=== PATIENT | male | born 1950 | race Caucasian/White ===

== ENCOUNTER → 2024-02-08 09:52 | Outpatient (REF) | payer MEDICARE, OTHER, SELFPAY | LOC: HWRAD 09:52 | PROVIDERS: ATTENDING PHYSICIAN Nurse Practitioner Family | DX: I77.9 Disorder of arteries and arterioles, unspecified (principal); I25.10 Atherosclerotic heart disease of native coronary artery without angina pectoris | CPT/HCPCS: 93880 ==

== ENCOUNTER → 2024-02-11 08:29 | Outpatient (REF) | payer MEDICARE, OTHER, SELFPAY | LOC: HWRAD 08:29 | PROVIDERS: ATTENDING PHYSICIAN Nurse Practitioner Family | DX: Z13.6 Encounter for screening for cardiovascular disorders (principal) | CPT/HCPCS: 76770 ==

== ENCOUNTER 2024-03-13 11:11 | Emergency (ER) | payer MEDICARE, OTHER, SELFPAY ==
[2024-03-13 11:19] VITALS: BP 168/88
[2024-03-13 11:46] LABS: Hematocrit 40.5 % (39.0-52.0); Hemoglobin 14.1 g/dL (13.0-18.0); Mean Corp Hgb Conc. 34.8 g/dL (33.0-37.0); Mean Corpuscular Volume 86.2 fL (80.0-94.0); Mean Platelet Volume 11.3 fL (7.4-10.4); Platelet Count 197 10^3/uL (130-400); White Blood Cell Count 6.4 10^3/uL (4.8-10.8)
[2024-03-13 12:06] LABS: ALT (SGPT) 22 U/L (0-50); AST (SGOT) 31 U/L (17-59); Alkaline Phosphatase 73 U/L (38-126); Blood Urea Nitrogen 19 mg/dl (9-20); Calcium 9.1 mg/dl (8.4-10.2); Carbon Dioxide 33 mmol/L (22-30); Chloride 100 mmol/L (98-107); Glucose 103 mg/dl (70-99); Potassium 3.7 mmol/L (3.5-5.1); Sodium 139 mmol/L (135-145); Total Bilirubin 0.8 mg/dl (0.2-1.3); Total Protein 7.4 g/dl (6.3-8.2); Troponin I < 0.012 ng/ml; eGFR > 60.00
--- NOTE | 2024-03-13 12:18 | ED.GENMED ---
History of Present Illness
General
Chief Complaint: Cardiac Symptoms
Time Seen by Provider: 03/13/24 12:18
Travel History
Have you had any contact with someone who has COVID-19?: No
Do you have any symptoms of coronavirus? Fever > 100 degrees, chills, cough, shortness of breath, sore throat, loss of taste or smell, muscle aches, or headache?: No
History of Present Illness
History of Present Illness:
HPI: The patient had an EKG done as part of routine exam today and was told to come here due to abnormality. He has had some vague dizziness recently as well as some nausea. Currently he has no symptoms. The nurse practitioner sent the report/EKG
which showed some ST changes in the setting of LVH. He was sent here to have troponin obtained. He does not have any known coronary artery disease
EXAM:
GENERAL: Well appearing in no distress, mildly hypertensive
HEENT: Moist oral mucosa
CARDIOVASCULAR: No murmurs, normal heart rate, regular rhythm, No chest wall tenderness
PULMONARY: No respiratory distress, breath sounds are clear and equal
ABDOMEN: Soft with no peritoneal signs, no tenderness
NEUROLOGIC: Excellent strength all extremities, no coordination deficits
PSYCHIATRIC: Appropriate mental status, normal insight and judgement
EXTREMITIES: Nontender, no edema, moves all extremities equally
SKIN: No rash, no lesions
TIME OF INITIAL ENCOUNTER: 1 PM
NUMBER AND COMPLEXITY OF PROBLEMS ADDRESSED AT THE ENCOUNTER
� Chronic conditions affecting care: High blood pressure, hyperlipidemia
� Acute Exacerbation and/or Progression of Chronic Illness: This is an acute problem
� Differential Diagnosis includes: LVH, CAD, ACS unlikely given lack of chest pain
AMOUNT AND/OR COMPLEXITY OF DATA TO BE REVIEWED AND ANALYZED
� I performed an independent evaluation of and my interpretation is:
EKG: Sinus 62, LVH, nonspecific ST abnormality, EKG #[address] abnormality, septal Q waves again noted
CT:
X-rays:
Laboratory Studies: White count 6.4, hemoglobin 14.1, bicarb slightly high at 33, troponin is negative
Other:
� Review of other/old records: I reviewed the EKG that was obtained at the office from earlier today that showed a sinus rhythm with rate of 59, there was some concern for nonspecific ST depression with LVH
� Clinical information was obtained by an independent historian: I spoke to the bedside
� Prescriptions/Medications Considered but not given:
� Further testing considered but not performed:
RISK OF COMPLICATIONS AND/OR MORBIDITY OR MORTALITY OF PATIENT MANAGEMENT
� Social determinants of health affecting care: Lives at home
� Discussion with other providers:
� Escalation of care including admission/observation vs risk of discharge considered: The patient has a normal troponin. LVH is suggested by today's EKG however there is currently no ST segment changes. I looked at the old echo
which did suggest mild concentric LVH in October 2020. I encouraged him to follow-up with cardiology as an outpatient�he used to see Dr. Hull and had seen Dr. Tariq in the past.
Past History
Past History
ED Past Medical History: HTN and Hypercholesterolemia
Social History
Tobacco: Former smoker
Alcohol: Occasional
Personal:
Living: with family
Employment: Employed
Phy Exam
Physical Exam
Physical Exam:
See HPI
Course
Orders/Labs/Results
Orders:
Orders
03/13/24 11:26
Electrocardiogram (*1) Urgent
Reason for Study: Abnormal EKG
03/13/24 11:27
EKG- Treatment ONCE
03/13/24 11:31
CBC/No Diff [Complete Blood Count/No Diff] Urgent
Comprehensive Metabolic Panel Urgent
Troponin I Urgent
03/13/24 12:58
Electrocardiogram (*1) Urgent
Reason for Study: Chest Pain
EKG- Treatment ONCE
Abnormal Lab Results
03/13/24
11:31
MPV 11.3 H fL
(7.4-10.4)
Carbon Dioxide 33 H mmol/L
(22-30)
Glucose 103 H mg/dl
(70-99)
03/13/24 11:31
03/13/24 11:31
Vital Signs
Initial and Last Documented VS:
Initial Vital Signs
Temp Pulse Resp BP Pulse Ox
98.4 F 65 16 168/88 98
03/13/24 11:19 03/13/24 11:19 03/13/24 11:19 03/13/24 11:19 03/13/24 11:19
Last Documented Vital Signs
Temp Pulse Resp BP Pulse Ox
98.4 F 61 11 168/88 100
03/13/24 11:19 03/13/24 12:45 03/13/24 12:45 03/13/24 11:19 03/13/24 12:45
*Critical Care Note
Total Time (30-74mins, 75-104mins- exclusive of procedures): Not Applicable
ED Attending Note
-
Portions of this chart may have been created with voice recognition software.� Occasional wrong word or��sound alike� substitutions may have occurred due to the inherent limitations of voice recognition software.
Discharge Plan
Departure
Patient Disposition: Home (Routine Discharge)
Date of Disposition: 03/13/24
Time of Disposition: 13:15
Patient with high blood pressure during this ER visit?: Yes
Discharge Problem:
Abnormal ECG
Instructions: BLOOD PRESSURE
Prescriptions:
No Action
atorvastatin 20 MG tablet
20 mg PO QPM
midodrine 5 MG tablet
5 mg PO TID@0800,1300,1800 Qty: 90 6RF
aspirin 81 MG tablet,chewable
81 mg PO DAILY 0RF
Referrals:
Derrick Cadet CRNP [Family Provider] -
Janes Tariq MD [Active] - Follow up in 2-3 days
Activity Restrictions/Additional Instructions:
The nurse practitioner earlier today noted 'ST depression along the inferior leads and per LVH criteria significant change from previous'. The EKG that I am looking at today in the hospital does show LVH is left ventricular hypertrophy) however
this does not mean that you truly have LVH. However, I reviewed an old echo report from 2019 that did show 'mild concentric LVH'. There is no sign of a heart attack at this point (cardiac troponin is negative). I do recommend that you follow-up
with your environmental services specialist for further evaluation.
Interventions
Interventions:
*Risk Screen - Suicide Last Done: 03/13/24 12:41
*General Assessment Last Done: 03/13/24 12:41
*Neglect/Abuse Screening Last Done: 03/13/24 12:41
ED- Fall Risk Assessment Last Done: 03/13/24 12:41
*ED COVID-19 Vaccine History Last Done: 03/13/24 11:19
ED- Pulmonary Assessment Last Done: 03/13/24 12:41
ED- Cardiac Assessment Last Done: 03/13/24 12:41
Discharge Date and Time
Print Language: ITALIAN
[2024-03-13 12:41] VITALS: BMI 24.3
== END 2024-03-13 13:31 | disposition home or self-care (01) ==
LOC: EMR 11:11
PROVIDERS: EMERGENCY PHYSICIAN Emergency Medicine; FAMILY PHYSICIAN Nurse Practitioner Family
DX: R94.31 Abnormal electrocardiogram [ECG] [EKG] (principal); R42 Dizziness and giddiness; R11.0 Nausea; I10 Essential (primary) hypertension; Z87.891 Personal history of nicotine dependence
CPT/HCPCS: 99284; 80053; 84484; 85027; 93005

== ENCOUNTER → 2024-06-29 13:50 | Outpatient (REF) | payer MEDICARE, OTHER, SELFPAY | LOC: HWRCS 13:50 | PROVIDERS: ATTENDING PHYSICIAN Internal Medicine Cardiovascular Disease; FAMILY PHYSICIAN Nurse Practitioner Family | DX: R94.31 Abnormal electrocardiogram [ECG] [EKG] (principal); I10 Essential (primary) hypertension | CPT/HCPCS: 93306 ==

== ENCOUNTER → 2025-03-12 09:35 | Outpatient (REF) | payer MEDICARE, OTHER, SELFPAY ==
[2025-03-12 12:40] LABS: PSA, Total - Screen 2.75 ng/ml (0.0-4.0)
== END ==
LOC: HWLAB 09:35
PROVIDERS: ATTENDING PHYSICIAN Obstetrics & Gynecology; FAMILY PHYSICIAN Nurse Practitioner Family
DX: Z12.5 Encounter for screening for malignant neoplasm of prostate (principal)
CPT/HCPCS: 36415; G0103